=== PATIENT | male | born 1945 | race Caucasian/White ===

== ENCOUNTER 2016-11-01 05:05 | Day surgery (SDC) | payer OTHER ==
[2016-10-31 10:29] LABS: MCH 29.9 pg (25.7-33.7); MCHC 33.1 g/dl (32.0-35.9); MEAN CELL VOLUME 90.2 fl (80-96); PLATELET COUNT 164 K/MM3 (134-434); RDW 14.1 % (11.9-15.9); WHITE BLOOD COUNT 7.2 K/mm3 (4.0-10.0)
[2016-10-31 10:42] LABS: INR 1.16 (0.82-1.09); PROTHROMBIN TIME (PATIENT) 12.8 SEC (9.98-11.88)
[2016-10-31 11:01] LABS: ALBUMIN 4.1 g/dl (3.4-5.0); BILIRUBIN,TOTAL 0.9 mg/dL (0.2-1.0); CALCIUM 8.9 mg/dL (8.5-10.1); CREATININE 1.2 mg/dL (0.7-1.3); TOT PROT 8.1 g/dl (6.4-8.2)
[2016-10-31 15:33] VITALS: BMI 33.5
[2016-11-01 08:49] VITALS: TEMP 97.3
[2016-11-01] MEDS ORDERED: PROPOFOL 40 ML ONE (09:11)
[2016-11-01 09:56] VITALS: BP 128/71; PULSE 60
--- NOTE | 2016-11-04 10:35 | PATH ---
Surgical Pathology Report Patient Name: ALPHONSO WALLACE [facility]. Rec. #: [id number] /Age/Gender: 1945 (Age: 71) / M Account: [id number] Location: U-ENDOSCOPY Taken: 11/01/2016 Received: 11/01/2016 Reported: 11/04/2016 Physicians: Brandon Terry M.D. Specimen(s) Received A: BX ILEOCECAL VALVE POLYPS B: BX PROXIMAL TRANSVERSE COLON POLYP C: BX MID TRANSVERSE COLON Clinical History Followup duodenal ulcer, adenoma surveillance Healed duodenal ulcer, colon polyps, diverticulosis Final Diagnosis A. ILEOCECAL VALVE, POLYPS, BIOPSY: POLYPOID FRAGMENTS OF ILEOCECAL MUCOSA WITH FOCAL ACTIVE INFLAMMATION AND PROMINENT REACTIVE LYMPHOID AGGREGATES. B. COLON, PROXIMAL TRANSVERSE, POLYP, POLYPECTOMY: POLYPOID FRAGMENT OF COLONIC MUCOSA WITH FOCAL HYPERPLASTIC CHANGE. C. COLON, MID TRANSVERSE, POLYP, POLYPECTOMY: POLYPOID FRAGMENTS OF COLONIC MUCOSA WITH ACTIVE INFLAMMATION, INCREASED EOSINOPHILS AND FOCAL HYPERPLASTIC CHANGE MOST CONSISTENTWITH INFLAMMATORY-TYPE POLYP. Electronically Signed Faraz Faith M.D. Gross Description A. Received in formalin, labeled "biopsy ileocecal valve polyps" are 5 blount, irregular portions of soft tissue ranging from 0.2-0.4 cm in greatest dimension. The specimens are submitted in toto in one cassette. B. Received in formalin labeled "proximal transverse colon polyp," are 3 portions of possible tissue ranging from 0.1-0.4 cm in greatest dimension. The specimen is submitted in toto in one cassette. C. Received in formalin, labeled "mid transverse colon polyp" are 3 blount, irregular portions of soft tissue ranging from 0.3-0.4 cm in greatest dimension. The specimens are submitted in toto in one cassette. DL/11/01/2016 saudi11/01/2016
== END 2016-11-01 09:56 | disposition home or self-care (01) ==
LOC: JASU-ENDO 05:05
PROVIDERS: ATTEND Internal Medicine Gastroenterology
PROC: 0DBL8ZX Excision of Transverse Colon, Via Natural or Artificial Opening Endoscopic, Diagnostic (ICD-10-PCS; 2016-11-01)
PROC: 0DBC8ZX Excision of Ileocecal Valve, Via Natural or Artificial Opening Endoscopic, Diagnostic (ICD-10-PCS; 2016-11-01)
PROC: 0DJ08ZZ Inspection of Upper Intestinal Tract, Via Natural or Artificial Opening Endoscopic (ICD-10-PCS; principal; 2016-11-01 08:00)
DX: K26.9 Duodenal ulcer, unspecified as acute or chronic, without hemorrhage or perforation (principal); K31.89 Other diseases of stomach and duodenum; K21.9 Gastro-esophageal reflux disease without esophagitis; Z86.010 Personal history of colon polyps; D12.3 Benign neoplasm of transverse colon; K63.5 Polyp of colon; K57.30 Diverticulosis of large intestine without perforation or abscess without bleeding; K64.8 Other hemorrhoids
CPT/HCPCS: 36415; 80053; 85027; 85610; 88305-TC

== ENCOUNTER 2020-10-23 05:40 | Day surgery (SDC) | payer OTHER ==
[2020-10-19 15:38] VITALS: BMI 30.7
[2020-10-23 11:55] VITALS: TEMP 97.7
[2020-10-23 12:02] VITALS: BP 153/73; PULSE 59
== END 2020-10-23 11:05 | disposition home or self-care (01) ==
LOC: JASU-ENDO 05:40
PROVIDERS: ATTEND Internal Medicine Gastroenterology
PROC: 0DBL8ZX Excision of Transverse Colon, Via Natural or Artificial Opening Endoscopic, Diagnostic (ICD-10-PCS; 2020-10-23)
PROC: 0DBP8ZX Excision of Rectum, Via Natural or Artificial Opening Endoscopic, Diagnostic (ICD-10-PCS; principal; 2020-10-23 09:00)
DX: Z12.11 Encounter for screening for malignant neoplasm of colon (principal); D12.8 Benign neoplasm of rectum; D12.3 Benign neoplasm of transverse colon; K57.30 Diverticulosis of large intestine without perforation or abscess without bleeding; K64.8 Other hemorrhoids; Z86.010 Personal history of colon polyps
CPT/HCPCS: 88305-TC

== ENCOUNTER 2021-05-08 04:12 | Day surgery (SDC) | payer OTHER ==
[2021-05-04 17:08] VITALS: BMI 29.8
[2021-05-08] MEDS ORDERED: ELECTROLYTE-148 SOLN 1,000 ML IV SCH (10:30)
[2021-05-08] MEDS ORDERED: MIDAZOLAM HCL 2 MG/2 ML SINGLE DOSE VIAL ONE (10:30)
[2021-05-08] MEDS ORDERED: ceFAZolin SODIUM 1 GM VIAL IVPB ONE (10:35)
[2021-05-08] MEDS ORDERED: ceFAZolin SODIUM 1 GM VIAL ONE ×2 (10:36→10:41)
[2021-05-08] MEDS ORDERED: KETOROLAC TROMETHAMINE 30 MG/1 ML VIAL ONE (10:41)
[2021-05-08 11:46] VITALS: BP 116/58; PULSE 76; TEMP 98.6
== END 2021-05-08 11:46 | disposition home or self-care (01) ==
LOC: JASU-SURG 04:12
PROVIDERS: ATTEND Urology
PROC: 0TF4XZZ Fragmentation in Left Kidney Pelvis, External Approach (ICD-10-PCS; principal; 2021-05-08 09:45)
DX: N20.0 Calculus of kidney (principal); E11.9 Type 2 diabetes mellitus without complications; I10 Essential (primary) hypertension
CPT/HCPCS: 82962

== ENCOUNTER 2021-11-04 13:35 | Emergency (ER) | payer OTHER ==
[2021-11-04 13:40] VITALS: TEMP 97; BMI 27.8
[2021-11-04 15:28] LABS: BASO % 0.3 % (0-2.0); EOS % 0.9 % (0-4.5); HEMATOCRIT 41.1 % (35.4-49); HEMOGLOBIN 13.5 GM/dL (11.7-16.9); MCHC 32.8 g/dl (32.0-35.9); MEAN CELL VOLUME 88.3 fl (80-96); MEAN PLT VOLUME 8.8 fl (7.5-11.1); MONO % 6.8 % (3.8-10.2); PLATELET COUNT 189 10^3/uL (134-434); RBC 4.65 M/mm3 (4.00-5.60); RDW 13.5 % (11.9-15.9); WHITE BLOOD COUNT 9.2 K/mm3 (4.0-10.0)
[2021-11-04 15:39] LABS: CALCIUM 9.2 mg/dL (8.5-10.1)
[2021-11-04 15:40] LABS: ALBUMIN 4.1 g/dl (3.4-5.0); BLOOD UREA NITROGEN 23.2 mg/dL (7-18)
[2021-11-04 15:43] LABS: CREATININE 1.5 mg/dL (0.55-1.3)
[2021-11-04] MEDS ORDERED: SODIUM CHLORIDE 0.9% 500 ML INFUS.BAG IV ONE (15:43)
[2021-11-04 15:44] LABS: BILIRUBIN,TOTAL 0.5 mg/dL (0.2-1); TOT PROT 7.8 g/dl (6.4-8.2)
[2021-11-04 17:10] VITALS: BP 138/67; PULSE 69
[2021-11-04 17:46] LABS: BLOOD UREA NITROGEN 20.5 mg/dL (7-18); CALCIUM 8.1 mg/dL (8.5-10.1)
[2021-11-04 17:49] LABS: CREATININE 1.4 mg/dL (0.55-1.3)
== END 2021-11-04 18:08 | disposition home or self-care (01) ==
LOC: JER 13:35
DX: R55 Syncope and collapse (principal)
CPT/HCPCS: 36415; 70450-TC; 72125-TC; 80048; 80053; 85025; 93005; 93010; 99285-25

== ENCOUNTER 2024-06-16 05:40 | Day surgery (SDC) | payer OTHER ==
[2024-06-15 10:20] VITALS: BMI 28.5
[2024-06-16 08:11] VITALS: TEMP 97.9
[2024-06-16 09:56] VITALS: RESP 16
[2024-06-16 10:22] VITALS: BP 139/64; PULSE 53
== END 2024-06-16 10:17 | disposition home or self-care (01) ==
LOC: JASU-ENDO 05:40
PROVIDERS: ATTEND Internal Medicine Gastroenterology
PROC: 0DBL8ZX Excision of Transverse Colon, Via Natural or Artificial Opening Endoscopic, Diagnostic (ICD-10-PCS; 2024-06-16)
PROC: 0DBN8ZX Excision of Sigmoid Colon, Via Natural or Artificial Opening Endoscopic, Diagnostic (ICD-10-PCS; 2024-06-16)
PROC: 0DBK8ZX Excision of Ascending Colon, Via Natural or Artificial Opening Endoscopic, Diagnostic (ICD-10-PCS; principal; 2024-06-16 09:00)
DX: Z12.11 Encounter for screening for malignant neoplasm of colon (principal); D12.2 Benign neoplasm of ascending colon; D12.3 Benign neoplasm of transverse colon; D12.5 Benign neoplasm of sigmoid colon; K57.30 Diverticulosis of large intestine without perforation or abscess without bleeding; Z86.0100 Personal history of colon polyps, unspecified
CPT/HCPCS: 82962; 88305-TC